=== PATIENT | female | born 1960 | race Caucasian/White ===

== ENCOUNTER 2017-02-16 23:39 | Emergency (ER) | payer SELFPAY ==
[2017-02-17 00:04] LABS: BASOPHIL % 0.9 % (0-2); PLATELET COUNT 188 x10^3mcL (130-400)
[2017-02-17 00:10] LABS: RED CELL DISTRIBUTION WIDTH 14.9 % (11.5-14.5)
[2017-02-17 00:14] LABS: CALCIUM 8.2 mg/dL (8.5-10.1); CARBON DIOXIDE 23.6 mmol/L (21-32); CHLORIDE SERUM 102 mmol/L (98-107); CREATININE SERUM 0.6 mg/dL (0.6-1.0); GFR1 > 60 mL/min; GLUCOSE SERUM 100 mg/dL (74-106); POTASSIUM SERUM 3.7 mmol/L (3.5-5.1); SODIUM SERUM 137 mmol/L (136-145)
[2017-02-17 00:19] LABS: ALBUMIN 3.8 g/dL (3.4-5.0); ALKALINE PHOSPHATASE 78 U/L (46-116); ALT/SGPT 25 U/L (14-59); AST/SGOT 45 U/L (15-37); BILIRUBIN TOTAL 0.7 mg/dL (0.20-1.00); TOTAL PROTEIN, SERUM 7.7 g/dL (6.4-8.2)
[2017-02-17 04:11] VITALS: BP 139/90
== END 2017-02-17 04:11 | disposition home or self-care (01) ==
LOC: ED 23:39
PROVIDERS: Emergency Medicine
DX: F41.9 Anxiety disorder, unspecified (principal); F10.129 Alcohol abuse with intoxication, unspecified
CPT/HCPCS: J2060; J7030